=== PATIENT | female | born 1975 | race American Indian/Alaskan Native ===

== ENCOUNTER 2018-07-01 07:42 | Emergency (ER) | payer SELFPAY ==
[2018-07-01 08:28] VITALS: BP 130/85
--- NOTE | 2018-07-01 09:09 | Emergency Department Report ---
ED Abdominal Pain HPI - General Chief Complaint: Urogenital-Female Stated Complaint: RT STOMACH PAIN Time Seen by Provider: 07/01/18 09:05 Source: patient Mode of arrival: Ambulatory Limitations: No Limitations - History of Present Illness MD Complaint: abdominal pain -: month(s) (several) Location: RLQ Radiation: none Severity: mild Quality: aching Consistency: intermittent Worsens With: other (urination) Associated Symptoms: denies other symptoms - Related Data Previous Rx's Medication Instructions Recorded Last Taken Type Acetaminophen/Codeine [Tylenol #3] 1 tab PO Q6H PRN #20 tab 04/22/15 Unknown Rx Cyclobenzaprine [Flexeril 10mg] 10 mg PO Q8H PRN #21 tablet 04/22/15 Unknown Rx Naproxen 500 mg PO BID 7 Days #14 tablet 07/01/18 Unknown Rx cephALEXin [Keflex] 500 mg PO Q6HR 7 Days #28 capsule 07/01/18 Unknown Rx Allergies Allergy/AdvReac Type Severity Reaction Status Date / Time No Known Allergies Allergy Verified 07/01/18 08:28 ED Review of Systems ROS: Stated complaint: RT STOMACH PAIN Other details as noted in HPI Comment: All other systems reviewed and negative Constitutional: denies: fever, malaise Respiratory: denies: cough Cardiovascular: denies: chest pain ED Past Medical Hx - Past Medical History Previous Medical History?: No - Surgical History Past Surgical History?: Yes Hx Cholecystectomy: Yes Additional Surgical History: X2, Liposuction, Tubal ligation - Social History Smoking Status: Never Smoker Substance Use Type: None - Medications Home Medications: Home Medications Medication Instructions Recorded Confirmed Last Taken Type Acetaminophen/Codeine [Tylenol #3] 1 tab PO Q6H PRN #20 tab 04/22/15 Unknown Rx Cyclobenzaprine [Flexeril 10mg] 10 mg PO Q8H PRN #21 tablet 04/22/15 Unknown Rx Naproxen 500 mg PO BID 7 Days #14 tablet 07/01/18 Unknown Rx cephALEXin [Keflex] 500 mg PO Q6HR 7 Days #28 capsule 07/01/18 Unknown Rx ED Physical Exam - General Limitations: No Limitations General appearance: alert, in no apparent distress - Head Head exam: Present: atraumatic, normocephalic - Eye Eye exam: Present: normal appearance - ENT ENT exam: Present: mucous membranes moist - Neck Neck exam: Present: normal inspection. Absent: tenderness, meningismus - Respiratory Respiratory exam: Present: normal lung sounds bilaterally. Absent: respiratory distress, wheezes, rales, rhonchi - Cardiovascular Cardiovascular Exam: Present: regular rate, normal rhythm, normal heart sounds. Absent: systolic murmur, diastolic murmur, rubs, gallop - GI/Abdominal GI/Abdominal exam: Present: soft, normal bowel sounds. Absent: distended, tenderness, guarding, rebound - Extremities Exam Extremities exam: Present: normal inspection - Back Exam Back exam: Present: normal inspection - Neurological Exam Neurological exam: Present: alert, oriented X3 - Psychiatric Psychiatric exam: Present: normal affect, normal mood - Skin Skin exam: Present: warm, dry, intact, normal color. Absent: rash ED Course Vital Signs 07/01/18 08:21 Temperature 98.3 F Pulse Rate 74 Respiratory 17 Rate Blood Pressure 130/85 O2 Sat by Pulse 100 Oximetry ED Medical Decision Making - Medical Decision Making Ms. Black presents with several months of right groin pain. Different diagnosis includes hernia, ovarian cyst, uterine fibroids. unlikely with history of tubal ligation. I reviewed electronic medical record. In 2015, patient had similar presentation. I strongly encouraged follow-up with outpatient physician. I recommended outpatient ultrasound or CT for evaluation of possible uterine fibroids or pelvic mass. Patient has received regular Pap smears. 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 Prescription for cephalexin for presumed cystitis, naproxen for analgesia. Critical care attestation.: If time is entered above; I have spent that time in minutes in the direct care of this critically ill patient, excluding procedure time. ED Disposition Clinical Impression: Right groin pain, Dysuria Disposition: - TO HOME OR SELFCARE Is pt being admited?: No Does the pt Need Aspirin: No Condition: Stable Instructions: Chronic Pelvic Pain in Women (ED) Prescriptions: cephALEXin [Keflex] 500 mg PO Q6HR 7 Days #28 capsule Naproxen 500 mg PO BID 7 Days #14 tablet Referrals: PRIMARY CARE, [Primary Care Provider] - 3-5 Days Time of Disposition: 11:28
[2018-07-01 12:01] LABS: Mucus,Urine FEW /HPF
[2018-07-01 12:05] LABS: Bilirubin,Urine Negative (Negative); Color,Urine Straw (Yellow)
[2018-07-01 12:06] LABS: Blood,Urine Negative (Negative); Protein,Urine <15 mg/dL mg/dL (Negative)
== END 2018-07-01 11:41 | disposition home or self-care (01) ==
LOC: ED 07:42
DX: R30.0 Dysuria (principal); R10.31 Right lower quadrant pain; Z90.49 Acquired absence of other specified parts of digestive tract
CPT/HCPCS: 81001; 99283

== ENCOUNTER 2019-10-06 14:39 | Outpatient (CLI) | payer OTHER ==
--- NOTE | 2019-10-07 15:05 | Mammography Report ---
DIGITAL SCREENING MAMMOGRAM WITH CAD, 10/06/2019 INDICATION: Baseline screening mammography. TECHNIQUE: Digital bilateral 2D mammography was obtained in the craniocaudal and mediolateral obliq ue projections. This examination was interpreted with the benefit of Computer-Aided Detection analysi s. COMPARISON: None. FINDINGS: Breast Density: The breasts are heterogeneously dense, which may obscure small masses. A left asymmetry on the MLO view requires additional imaging. No architectural distortion or suspicio us calcifications of the left breast. There is no evidence of dominant mass, suspicious calcification s or architectural distortion in the right breast. IMPRESSION: Left asymmetry requiring additional imaging. Recommend recall for left ML, repeat CC and spot compression MLO views and left breast ultrasound if needed. Follow up recommendation: Special View: Spot Category 0: Incomplete. Needs additional imaging evaluation and/or prior mammograms for comparison. A "normal" or negative report should not discourage follow up or biopsy of a clinically significant f inding. A written summary of these findings will be mailed to the patient. The patient will be entered into a mammography reporting system which will generate a reminder letter for the patient's next appointmen t at the appropriate interval. The [employer] recommends yearly mammograms starting at age 40 and continuing as l elizabeth as a woman is in good health. Breast MRI is recommended for women with an approximate 20-25% or greater lifetime risk of breast cancer, including women with a strong family history of breast or ova adriana cancer or who have been treated for Hodgkin's disease. Signer Name: Dann Song MD Signed: 10/07/2019 3:01 PM Workstation Name: [id number]
== END 2019-10-06 14:40 | disposition home or self-care (01) ==
LOC: MAMMO 14:39
PROVIDERS: ATTEND Obstetrics & Gynecology
DX: Z12.31 Encounter for screening mammogram for malignant neoplasm of breast (principal)
CPT/HCPCS: 77067

== ENCOUNTER 2019-10-30 14:06 | Outpatient (CLI) | payer OTHER ==
--- NOTE | 2019-10-30 15:01 | Mammography Report ---
DIGITAL BILATERAL DIAGNOSTIC MAMMOGRAM WITH CAD, 10/30/2019 INDICATION: ABN MAMMO TECHNIQUE: Digital left mammographic imaging was performed. Spot compression views were obtained. This examination was interpreted with the benefit of Computer-aided Detection analysis. COMPARISON: 10/06/19 Breast Density: The breast is heterogeneously dense, which may obscure small masses. FINDINGS: Additional left mammographic views were performed and are negative. Satisfactory effacement of asymmetry. Lateral and exaggerated CC views are negative. IMPRESSION: No mammographic evidence of malignancy. Follow up recommendation: Routine BI-RADS Category 1: Negative. A "normal" or negative report should not discourage follow up or biopsy of a clinically significant f inding. A written summary of these findings will be mailed to the patient. The patient will be entered into a mammography reporting system which will generate a reminder letter for the patient's next appointmen t at the appropriate interval. According to the [employer], yearly mammograms are recommended starting at age 40 and continuing as long as a woman is in good health. Breast MRI is recommended for women with an jolene roximately 20-25% or greater lifetime risk of breast cancer, including women with a strong family his tory of breast or ovarian cancer and women who have been treated for Hodgkin's disease. Signer Name: Dann Song MD Signed: 10/30/2019 2:56 PM Workstation Name: [id number]
== END 2019-10-30 14:07 | disposition home or self-care (01) ==
LOC: MAMMO 14:06
PROVIDERS: ATTEND Obstetrics & Gynecology
DX: R92.8 Other abnormal and inconclusive findings on diagnostic imaging of breast (principal)

== ENCOUNTER 2021-03-01 09:59 | Outpatient (CLI) | payer OTHER ==
--- NOTE | 2021-03-01 12:06 | Mammography Report ---
BILATERAL DIGITAL SCREENING MAMMOGRAM WITH CAD HISTORY: Screening mammogram. TECHNIQUE: Routine digital mammographic imaging performed. This examination was interpreted with edd de leon benefit of Computer-aided Detection analysis. COMPARISON: 10/30/2019, 10/06/2019. FINDINGS: Breast Density: scattered fibroglandular appearance of the breast tissue. Digital CC and MLO views demonstrate no mammographic evidence of malignancy. IMPRESSION: No mammographic evidence of malignancy. If the clinical examination remains stable, recommend bilate ral mammogram in approximately one year. BIRADS 1: Negative. FURTHER INFORMATION: According to the [employer], yearly mammograms are recommend ed starting at age 40 and continuing as long as a woman is in good health. Clinical Breast Exams shou ld be part of a periodic health exam-about every 3 years for women in their 20s and 30s and every yea r for women 40 and over. Breast self exam is an option for women starting in their 20s. Any breast ch lydia noted on a breast self exam should be reported promptly to the patient's healthcare provider. Br east MRI is recommended for women with an approximately 20-25% or greater lifetime risk of breast can cer, including women with a strong family history of breast or ovarian cancer and women who have been treated for Hodgkin's disease. A negative Mammography report should not discourage follow up or biopsy of a clinically significant f inding and/or abnormality. Dense breast tissue may obscure small neoplasms. The patient will be entered into a reminder system with a target due date for the next screening mamm ogram. Signer Name: Miguel Costello MD Signed: 03/01/2021 12:01 PM Workstation Name: [id number]
== END 2021-03-01 10:00 | disposition home or self-care (01) ==
LOC: MAMMO 09:59
PROVIDERS: ATTEND Obstetrics & Gynecology
DX: Z12.31 Encounter for screening mammogram for malignant neoplasm of breast (principal); N64.89 Other specified disorders of breast
CPT/HCPCS: 77067